=== PATIENT | male | born 2000 | race Caucasian/White ===

== ENCOUNTER 2021-03-25 11:09 | Outpatient (CLI) | payer BC | END 2021-03-25 11:10 | disposition home or self-care (01) | LOC: CSHWCC 11:09 | PROVIDERS: ATTEND Nurse Practitioner Family | DX: T81.89XD Other complications of procedures, not elsewhere classified, subsequent encounter (principal); L05.01 Pilonidal cyst with abscess; G89.11 Acute pain due to trauma; T86.821 Skin graft (allograft) (autograft) failure; Z98.890 Other specified postprocedural states | CPT/HCPCS: 97605 ==

== ENCOUNTER 2021-04-01 09:17 | Outpatient (CLI) | payer BC | END 2021-04-01 09:18 | disposition home or self-care (01) | LOC: CSHWCC 09:17 | PROVIDERS: ATTEND Nurse Practitioner Family | DX: T81.89XD Other complications of procedures, not elsewhere classified, subsequent encounter (principal); T86.821 Skin graft (allograft) (autograft) failure; G89.11 Acute pain due to trauma; L05.01 Pilonidal cyst with abscess; Z98.890 Other specified postprocedural states ==

== ENCOUNTER 2021-04-04 13:08 | Outpatient (CLI) | payer BC | END 2021-04-04 13:09 | disposition home or self-care (01) | LOC: CSHWCC 13:08 | PROVIDERS: ATTEND Nurse Practitioner Family | DX: T81.89XD Other complications of procedures, not elsewhere classified, subsequent encounter (principal); T86.821 Skin graft (allograft) (autograft) failure; L05.01 Pilonidal cyst with abscess; G89.11 Acute pain due to trauma; Z98.890 Other specified postprocedural states ==

== ENCOUNTER 2021-05-18 08:19 | Outpatient (CLI) | payer BC | END 2021-05-18 08:20 | disposition home or self-care (01) | LOC: CSHWCC 08:19 | PROVIDERS: ATTEND Nurse Practitioner Family | DX: L05.01 Pilonidal cyst with abscess (principal); T81.89XD Other complications of procedures, not elsewhere classified, subsequent encounter; T86.821 Skin graft (allograft) (autograft) failure; G89.11 Acute pain due to trauma; Z98.890 Other specified postprocedural states | CPT/HCPCS: 99212; G0463 ==

== ENCOUNTER 2021-06-08 09:26 | Outpatient (CLI) | payer BC | END 2021-06-08 09:27 | disposition home or self-care (01) | LOC: CSHWCC 09:26 | PROVIDERS: ATTEND Nurse Practitioner Family | DX: T81.89XD Other complications of procedures, not elsewhere classified, subsequent encounter (principal); T86.821 Skin graft (allograft) (autograft) failure; G89.11 Acute pain due to trauma; L05.01 Pilonidal cyst with abscess; Z98.890 Other specified postprocedural states | CPT/HCPCS: 99212; G0463 ==

== ENCOUNTER 2021-06-15 08:25 | Outpatient (CLI) | payer BC | END 2021-06-15 08:26 | disposition home or self-care (01) | LOC: CSHWCC 08:25 | PROVIDERS: ATTEND Nurse Practitioner Family | DX: T81.89XD Other complications of procedures, not elsewhere classified, subsequent encounter (principal); T86.821 Skin graft (allograft) (autograft) failure; G89.11 Acute pain due to trauma; L05.01 Pilonidal cyst with abscess; Z98.890 Other specified postprocedural states | CPT/HCPCS: 99212; G0463 ==

== ENCOUNTER 2021-08-10 09:41 | Outpatient (CLI) | payer BC | END 2021-08-10 09:42 | disposition home or self-care (01) | LOC: CSHWCC 09:41 | PROVIDERS: ATTEND Nurse Practitioner Family | DX: T81.89XD Other complications of procedures, not elsewhere classified, subsequent encounter (principal); T86.821 Skin graft (allograft) (autograft) failure; G89.11 Acute pain due to trauma; L05.01 Pilonidal cyst with abscess; Z98.890 Other specified postprocedural states | CPT/HCPCS: 99212; G0463 ==